=== PATIENT | male | born 1970 | race African-American/Black ===

== ENCOUNTER 2017-12-16 14:41 | Emergency (ER) | payer SELFPAY ==
[2017-12-16] MEDS ORDERED: HYDROcodone/Acetaminophen 5/325 mg Tablet ONE (15:25)
[2017-12-16 16:01] LABS: Bilirubin Small (Negative); Blood, Urine Moderate (Negative); Clarity CLOUDY (Clear); Glucose, Urine (Dipstick) Negative (Negative); Leukocyte Large (Negative); Nitrite Negative (Negative); Protein, Urine (Dipstick) 30 mg/dL (Neg-Trace); Specific Gravity, Urine 1.028 (1.002-1.036)
[2017-12-16 16:05] LABS: Bacteria/HPF None Seen HPF (None Seen); Pathc Cast-AUWi Flag 2.18 (0-2.49); RBC/HPF 21-50 HPF (0-3); Squamous Epithelial 0-3 HPF (0-3)
[2017-12-16 16:14] LABS: Hyaline Casts/LPF 0-3 HYALINE CAST LPF (0-3 Hyaline)
--- NOTE | 2017-12-16 16:23 | ULT ---
TESTICULAR/SCROTAL ULTRASOUND: HISTORY: Right scrotal/testicular pain since Thursday. TECHNIQUE: Multiplanar parnell scale and color doppler images were obtained in a bilateral testicular/scrotal ultra sound. Spectral analysis of the doppler waveforms were performed. FINDINGS: The testicles are normal in echogenicity without focal lesions and demonstrate normal symmetric inte rnal flow. There is a minimal right sided hydrocele. A small right epididymal cyst measures 4 mm in s ize. There is increased vascularity in both sides of the scrotum consistent with bilateral varicocele s. IMPRESSION: 1. Bilateral varicocele. 2. Right epididymal cyst. 3. Small right hydrocele. POS: CET
[2017-12-16] MEDS ORDERED: Lidocaine 1% PF 5 ML VIAL ONE (16:24)
[2017-12-16] MEDS ORDERED: cefTRIAXone\\ROCEPHIN 250 MG VIAL ONE (16:24)
[2017-12-18 04:17] LABS: Chlamydia by PCR Not Detected (NotDetected); GC by PCR Not Detected (NotDetected)
== END 2017-12-16 17:12 | disposition home or self-care (01) ==
LOC: ERS 14:41
DX: N45.1 Epididymitis (principal); F17.210 Nicotine dependence, cigarettes, uncomplicated
CPT/HCPCS: 76870; 81003; 81015; 87086; 87491; 87591; 93976; 96372; 99406; J0696; J2001

== ENCOUNTER 2019-09-04 10:33 | Emergency (ER) | payer OTHER, SELFPAY ==
[2019-09-05 14:53] LABS: SARS-CoV-2 MS2 Positive; SARS-CoV-2 N Gene Negative; SARS-CoV-2 S Gene Negative; SARS-CoV-2 orf1ab Negative
== END 2019-09-04 11:05 | disposition home or self-care (01) ==
LOC: ERS 10:33
DX: Z20.828 Contact with and (suspected) exposure to other viral communicable diseases (principal); F17.210 Nicotine dependence, cigarettes, uncomplicated
CPT/HCPCS: 87635; 99283; U0003

== ENCOUNTER 2020-08-17 11:30 | Inpatient (IN) | payer SELFPAY ==
[2020-08-17 12:17] LABS: Hemoglobin 17.3 g/dL (14.0-18.0); Mean Corpuscular HGB CONC 32.6 g/dL (32.0-36.0); Mean Corpuscular Hemoglobin 29.9 pg (27.0-31.0); Mean Corpuscular Volume 91.8 fL (78.0-98.0); Mean Platelet Volume 8.3 fL (7.4-10.4); Platelet Count 210 thou/uL (130-400); RBC Distribution Width 11.9 % (11.5-14.5); Red Blood Cell (RBC) Count 5.77 mill/uL (4.70-6.10); White Blood Cell (WBC) Count 27.9 thou/uL (4.8-10.8)
[2020-08-17] MEDS ORDERED: Morphine 4 MG/ML VIAL ONE ×2 (12:17→13:18)
[2020-08-17] MEDS ORDERED: Sodium Chloride 0.9% 100 ML ONE (12:17)
[2020-08-17] MEDS ORDERED: Cefepime 2 GM VIAL ONE (12:17)
[2020-08-17 12:37] LABS: Band 5 % (5-11); Lymphocytes 17 % (21-51); MDiff Complete? YES; Monocytes 7 % (0-10); Neutrophil 70 % (42-75); Platelet Morphology Comment Appears Adequate; RBC Morphology Normal; Reactive Lymphocytes 1 % (0-10)
[2020-08-17 12:38] LABS: ALT (SGPT) 25 U/L (8-55); AST (SGOT) 24 U/L (5-34); Albumin 3.9 g/dL (3.5-5.0); Alkaline Phosphatase 116 U/L (40-110); Anion Gap 16 mmol/L (10-20); BUN (Urea Nitrogen) 13 mg/dL (8.9-20.6); Bilirubin, Total 1.2 mg/dL (0.2-1.2); Calc. Creatinine Clearance 0 mL/min (70-130); Calcium 9.7 mg/dL (7.8-10.44); Carbon Dioxide 23 mmol/L (22-29); Chloride 98 mmol/L (98-107); Globulin 4.3 g/dL (2.4-3.5); Glucose 118 mg/dL (70-105); Potassium 4.3 mmol/L (3.5-5.1); Protein, Total 8.2 g/dL (6.0-8.3); Sodium 133 mmol/L (136-145)
[2020-08-17] MEDS ORDERED: Lidocaine 1% w/Epinephrine 1:100K 20 ML VIAL ONE ×2 (13:13→18:08)
[2020-08-17] MEDS ORDERED: VANCOMYCIN 2 GRAM/400 ML BAG 2 GM in Premix Bag 1 BAG IVPB SCH (13:30)
[2020-08-17 14:31] LABS: SARS-CoV-2 NAA Rapid Test Not Detected (NotDetected)
[2020-08-17 15:02] LABS: Lactic Acid 0.9 mmol/L (0.5-2.2)
[2020-08-17 16:22] LABS: Bacteria/HPF None Seen HPF (None Seen); Bilirubin Negative (Negative); Blood, Urine Negative (Negative); Clarity Clear (Clear); Glucose, Urine (Dipstick) Normal (Negative); Ketone, Urine 20 mg/dL (Negative); Leukocyte Negative Leu/uL (Negative); Nitrite Negative (Negative); Protein, Urine (Dipstick) 50 mg/dL (Neg-Trace); RBC/HPF 0-3 HPF (0-3); Specific Gravity, Urine 1.026 (1.002-1.036); Squamous Epithelial 0-3 HPF (0-3); pH, Urine 5.5 (5.0-9.0)
[2020-08-17] MEDS ORDERED: Bupivacaine PF 0.5% 30 ML VIAL ONE (18:08)
[2020-08-17] MEDS ORDERED: Fentanyl 100 MCG/2 ML VIAL ONE (18:09)
[2020-08-17] MEDS ORDERED: PHENYLEPHRINE-NS 100 MCG/ML 10 ML SYRINGE ONE (18:09)
[2020-08-17] MEDS ORDERED: PROPOFOL 200 MG/20 ML VIAL ONE (18:21)
[2020-08-17] MEDS ORDERED: Lidocaine 1% PF 5 ML VIAL ONE (18:21)
[2020-08-17] MEDS ORDERED: Ketorolac Tromethamine 30 MG/ML VIAL ONE (18:21)
[2020-08-17] MEDS ORDERED: Ondansetron HCl/PF 4 MG/2 ML Vial IVP PRN (18:34)
[2020-08-17] MEDS ORDERED: HYDROmorphone 2 MG/ML VIAL SLOW IVP PRN (18:34)
[2020-08-17] MEDS ORDERED: HYDROcodone/Acetaminophen 10/325 mg Tablet PO PRN (19:21)
[2020-08-17] MEDS ORDERED: Ondansetron ODT 4 MG TAB PO PRN (19:21)
[2020-08-17] MEDS ORDERED: Ondansetron PF 4 MG/2 ML Vial IVP PRN (19:21)
[2020-08-17] MEDS ORDERED: Morphine 2 MG/ML VIAL SLOW IVP PRN (19:21)
[2020-08-17] MEDS ORDERED: hydrALAZINE 20 MG/ML VIAL SLOW IVP PRN (19:21)
[2020-08-17] MEDS: Sodium Chloride 0.9% 1,000 ML IV SCH (20:38)
[2020-08-17] MEDS: Clindamycin/D5W 900 MG in Premix Bag 1 BAG IVPB SCH (20:56)
[2020-08-17] MEDS: Famotidine 20 MG TAB PO SCH (20:56)
[2020-08-17] MEDS: Enoxaparin Sodium 40 MG/0.4 ML SYRINGE SC SCH (20:56)
[2020-08-17 22:56] VITALS: BMI 26.6
[2020-08-18] MEDS: HYDROcodone/Acetaminophen 10/325 mg Tablet PO PRN ×3 (01:41→18:39)
[2020-08-18] MEDS: VANCOMYCIN 1.25 GM/250 ML BAG 1.25 GM in Premix Bag 1 BAG IVPB SCH ×2 (03:55→15:13)
[2020-08-18] MEDS: Clindamycin/D5W 900 MG in Premix Bag 1 BAG IVPB SCH ×3 (05:33→20:41)
[2020-08-18 05:42] LABS: Band 8 % (5-11); Eosinophils 2 % (0-10); Hemoglobin 14.4 g/dL (14.0-18.0); Lymphocytes 13 % (21-51); MDiff Complete? YES; Mean Corpuscular HGB CONC 31.6 g/dL (32.0-36.0); Mean Corpuscular Hemoglobin 29.4 pg (27.0-31.0); Mean Corpuscular Volume 92.9 fL (78.0-98.0); Monocytes 11 % (0-10); Neutrophil 66 % (42-75); Platelet Count 205 thou/uL (130-400); Platelet Morphology Comment Appears Adequate; RBC Distribution Width 11.8 % (11.5-14.5); Red Blood Cell (RBC) Count 4.91 mill/uL (4.70-6.10)
[2020-08-18 05:53] LABS: ALT (SGPT) 15 U/L (8-55); AST (SGOT) 10 U/L (5-34); Albumin 3.1 g/dL (3.5-5.0); Alkaline Phosphatase 91 U/L (40-110); Anion Gap 13 mmol/L (10-20); BUN (Urea Nitrogen) 11 mg/dL (8.9-20.6); Bilirubin, Total 0.9 mg/dL (0.2-1.2); Calc. Creatinine Clearance 107 mL/min (70-130); Calcium 8.4 mg/dL (7.8-10.44); Carbon Dioxide 24 mmol/L (22-29); Chloride 101 mmol/L (98-107); Glucose 112 mg/dL (70-105); Potassium 4.1 mmol/L (3.5-5.1); Protein, Total 6.1 g/dL (6.0-8.3); Sodium 134 mmol/L (136-145)
[2020-08-18] MEDS: Sodium Chloride 0.9% 1,000 ML IV SCH ×2 (06:52→17:08)
[2020-08-18] MEDS: Famotidine 20 MG TAB PO SCH ×2 (09:12→20:41)
[2020-08-18] MEDS: Morphine 4 MG/ML VIAL SLOW IVP PRN (10:57)
[2020-08-18] MEDS ORDERED: Lidocaine 4% Topical Sol 50 ML BOT TOP SCH (12:30)
[2020-08-18] MEDS: Enoxaparin Sodium 40 MG/0.4 ML SYRINGE SC SCH (20:40)
[2020-08-19 02:39] LABS: Vancomycin, Trough 10.7 ug/mL
[2020-08-19] MEDS: VANCOMYCIN 1.25 GM/250 ML BAG 1.25 GM in Premix Bag 1 BAG IVPB SCH (03:19)
[2020-08-19] MEDS: Clindamycin/D5W 900 MG in Premix Bag 1 BAG IVPB SCH ×3 (05:28→21:29)
[2020-08-19] MEDS: HYDROcodone/Acetaminophen 10/325 mg Tablet PO PRN ×3 (05:35→18:25)
[2020-08-19] MEDS: Famotidine 20 MG TAB PO SCH ×2 (08:38→19:33)
[2020-08-19] MEDS: Vancomycin 1 GM in Premix Bag 1 BAG IVPB SCH ×2 (11:28→19:33)
[2020-08-19] MEDS: Enoxaparin Sodium 40 MG/0.4 ML SYRINGE SC SCH (19:33)
[2020-08-20 03:47] LABS: Vancomycin, Trough 14.4 ug/mL
[2020-08-20] MEDS: Vancomycin 1 GM in Premix Bag 1 BAG IVPB SCH ×3 (03:56→19:53)
[2020-08-20] MEDS: Clindamycin/D5W 900 MG in Premix Bag 1 BAG IVPB SCH ×3 (05:33→21:02)
[2020-08-20] MEDS: Famotidine 20 MG TAB PO SCH ×2 (08:42→19:52)
[2020-08-20] MEDS ORDERED: Polyethylene Glycol 3350 17 GM Packet PO PRN (18:05)
[2020-08-20] MEDS: Enoxaparin Sodium 40 MG/0.4 ML SYRINGE SC SCH (19:52)
[2020-08-21] MEDS: Clindamycin/D5W 900 MG in Premix Bag 1 BAG IVPB SCH ×2 (05:06→13:33)
[2020-08-21 06:05] LABS: Anion Gap 12 mmol/L (10-20); BUN (Urea Nitrogen) 12 mg/dL (8.9-20.6); Calc. Creatinine Clearance 97 mL/min (70-130); Calcium 8.6 mg/dL (7.8-10.44); Carbon Dioxide 25 mmol/L (22-29); Chloride 102 mmol/L (98-107); Glucose 123 mg/dL (70-105); Potassium 3.7 mmol/L (3.5-5.1); Sodium 135 mmol/L (136-145); Vancomycin, Trough 14.5 ug/mL
[2020-08-21] MEDS: Vancomycin 1 GM in Premix Bag 1 BAG IVPB SCH ×3 (06:13→14:12)
[2020-08-21] MEDS: Famotidine 20 MG TAB PO SCH (07:52)
[2020-08-21] MEDS: Morphine 4 MG/ML VIAL SLOW IVP PRN (09:10)
[2020-08-21] MEDS: HYDROcodone/Acetaminophen 10/325 mg Tablet PO PRN (09:15)
[2020-08-21 16:03] VITALS: BP 135/89; TEMP 98.5
[2020-08-21] MEDS ORDERED: Sulfameth/Trimethoprim DS 800-160mg TAB PO SCH (21:00)
[2020-08-21] MEDS ORDERED: Amoxicillin/Potassium Clav 500 MG TAB PO SCH (21:00)
== END 2020-08-21 16:57 | disposition home or self-care (01) | DRG 580 ==
LOC: ERS 11:30 → SURG A 16:12 → SDC 16:14 → SURG A 19:21
PROVIDERS: ADMIT Specialist; ATTEND Specialist
PROC: 0JDM0ZZ Extraction of Left Upper Leg Subcutaneous Tissue and Fascia, Open Approach (ICD-10-PCS; principal; 2020-08-17)
DX: L02.214 Cutaneous abscess of groin (principal); I96 Gangrene, not elsewhere classified; Z20.822 Contact with and (suspected) exposure to COVID-19; F17.210 Nicotine dependence, cigarettes, uncomplicated; F12.10 Cannabis abuse, uncomplicated; L03.314 Cellulitis of groin
CPT/HCPCS: 36415; 80048; 80053; 80202; 81003; 81015; 83605; 85025; 87040; 87070; 87086; 87205; 96365; 96366; 96367; 96375; 96376; J0692; J1650; J1885; J1956; J2270; J2704; J3010; J3370; J3490; S0020; U0002; U0005

== ENCOUNTER 2022-03-07 15:32 | Emergency (ER) | payer SELFPAY ==
[2022-03-07] MEDS ORDERED: Acetaminophen 500 MG TAB ONE (17:13)
== END 2022-03-07 18:43 | disposition home or self-care (01) ==
LOC: ERS 15:32
DX: J20.9 Acute bronchitis, unspecified (principal); J02.9 Acute pharyngitis, unspecified; M79.10 Myalgia, unspecified site; F17.210 Nicotine dependence, cigarettes, uncomplicated
CPT/HCPCS: 71045; 87081; 87430; 87804; J7620